=== PATIENT | female | born 1960 | race Caucasian/White ===

== ENCOUNTER 2022-02-18 09:46 | Outpatient (REF) | payer OTHER, SELFPAY ==
[2022-02-18 19:24] LABS: Bacteria Few HPF (Negative); Casts Negative LPF (Negative); Crystals Negative HPF (Negative); Epithelial Cells Few HPF (Negative); Mucus Negative (Negative)
[2022-02-18 19:25] LABS: C & S Indicated? C&S Done As Ordered
== END 2022-02-18 09:47 | disposition home or self-care (01) ==
LOC: LBN 09:46
PROVIDERS: PCP Internal Medicine; Visit Provider Physician Assistant Medical
DX: R35.0 Frequency of micturition (principal)
CPT/HCPCS: 87077; 81015; 87086; 87186